=== PATIENT | female | born 1970 | race Native Hawaiian/Other Pacific Islander ===

== ENCOUNTER 2022-09-24 10:15 | Outpatient (REF) | payer OTHER, SELFPAY ==
--- NOTE | 2022-09-24 10:15 | CRLHL7_ITS ---
For Patients: As a result of the Century Cures Act, medical imaging exams and procedure reports are released immediately into your electronic medical record. You may view this report before your referring provider. If you have questions, please contact your health care provider. BILATERAL SCREENING MAMMOGRAM WITH COMPUTER-AIDED DETECTION AND TOMOSYNTHESIS TECHNIQUE: CC and MLO views were obtained. These mammographic images have been obtained using full-field digital technique. These mammographic images were interpreted with the benefit of computer-aided detection. Breast Tomosynthesis was used in this interpretation. COMPARISON FILM: 12/15/18, 09/26/16, 01/11/15. FINDINGS: There are scattered areas of fibroglandular density IMPRESSION: There is no radiographic evidence for malignancy. ASSESSMENT: BI-RADS Category 1: Negative RECOMMENDATION: Routine screening mammogram in 1 year. A lay language report of this examination will be provided to the patient. Zachary Perry M.D. Diagnostic Radiologist [email or web address] SHAKIRA/Dictated by: Zachary Perry MD @ 10/01/2022 11:30:00 AM (Electronically Signed)
== END 2022-09-24 10:16 | disposition home or self-care (01) ==
LOC: MAMMO 10:15
PROVIDERS: Visit Provider Nurse Practitioner Family
DX: Z12.31 Encounter for screening mammogram for malignant neoplasm of breast (principal)
CPT/HCPCS: 36415; 77063; 77067; 83036; T1013

== ENCOUNTER 2023-02-21 19:54 | Outpatient (CLI) | payer SELFPAY | END 2023-02-21 19:55 | disposition home or self-care (01) | PROVIDERS: Visit Provider Nurse Practitioner Family | DX: R10.9 Unspecified abdominal pain (principal) | CPT/HCPCS: 86140 ==

== ENCOUNTER 2025-03-10 15:07 | Outpatient (REF) | payer SELFPAY ==
--- OUTSIDE RECORDS SUMMARY | 2025-03-10 15:09 | XMS_ITS | Clinical Summary ---
Author Organization [employer] [facility] [employer] Address [address] [place] [id number] Care Team Providers Care Helicopter Mechanic Name Role Phone Unavailable Primary Care Provider Unavailabl e Allergies Active Allergy Reactions Criticality Noted Date Comments Droperidol 08/18/2007 Medications atenoloL (TENORMIN) 50 mg tabletIndications :Essential hypertension Take 1 tablet by mouth once daily. 30 tablet 5 0 Active levothyroxine (SYNTHROID) 50 mcg tabletIndications :Hypothyroidism, unspecified type TAKE 1 TABLET BY MOUTH BEFORE BREAKFAST 90 Tablet 1 Active losartan (COZAAR) 25 mg tabletIndications :Essential hypertension TAKE 1 TABLET BY MOUTH ONCE DAILY 30 Tablet 1 Active Active Problems Problem Noted Date Diagnosed Date UTI due to extended-spectrum beta lactamase (ESBL) producing Escherichia coli 09/04/2016 Elevated BP 08/31/2016 Solitary kidney 05/18/2015 Overview (05/18/2015): Right kidney is absent. Diverticulosis of large intestine 05/18/2015 Overview (12/23/2018): With Diverticulitis on CT scan in 10/2017 treated outpatient with Augmetin. She was told to have a colonoscopy. In 2012 she had her first bout of diverticulitis that was not confirmed by CT scan. Colonoscopy 12/2018 mild diverticulosis, repeat in 10 years Hypothyroidism 03/29/2014 Vitamin D deficiency 03/29/2014 Reflux esophagitis 06/14/2011 Other joint derangement, not elsewhere classified, ankle and foot 10/09/2007 Immunizations Immunization Administration Dates Next Due COVID-19 vaccine ([employer]-UrbfulNTExactFlat 30mcg/0.3mL) P F, MDV 01/06/2021,12/17/2020 Td (Age >=7 Years) 01/04/1996 Tdap 11/02/2008 Family History Medical History Relation Name Comments Diabetes Brother Diabetes Father also s/p renal transplant Diabetes Mother Hypertension Mother Relation Name Status Comments Brother Father Mother Social History Tobacco Use Types Packs/Day Years Used Date Smoking Tobacco: Never Smokeless Tobacco: Never Tobacco Cessation:Counseling Given: Yes Comments:never Alcohol Use Standard Drinks/Week Comments No 0 (1 standard drink = 0.6 oz pur e alcohol) PHQ-2 Answer Date Recorded PHQ-2 TOTAL SCORE 4 02/19/2020 Social Connections Answer Date Recorded Frequency of Communication with Friends and Fami ly Not on file 09/16/2021 Financial Resource Strain Answer Date R ecorded Difficulty of Paying Living Expenses Not on file 09/16/2021 Difficulty of Paying Living Expenses Not on file 09/16/2021 Comments No Sex and Gender Information Value Date Recorded Sex Assigned at Not on file Legal Sex Female 5:27 AM [employer] [facility] Gender Identity Not on file Sexual Orientation Not on file Occupation Industry Job Start Date Job End Date Not on file Not on file Not on file Not on file Obstetrics History Para Term AB IAB SAB Ectopic Multiple Livin g Live Births 3 1 1 2 Date Outcome GA Total Labor Labor/2nd/3rd Weight Sex Type Anes PTL Fide A1 A5 Name Clin SAB Last Filed Vital Signs Vital Sign Reading Time Taken Comments Blood Pressure 138/91 03/09/2021 7:56 AM CDT Pulse 84 03/09/2021 7:56 AM CDT Temperature 36.3 C (97.3 F) 03/09/2021 7:56 AM CDT Respiratory Rate 18 03/07/2007 10:20 AM CDT Oxygen Saturation 96% 03/09/2021 7:56 AM CDT Inhaled Oxygen Concentration - - Weight 63.8 kg (140 lb 9.6 oz) 03/09/2021 7:56 A M CDT Height 146 cm (4' 9.48) 03/06/2021 1:08 PM CDT Body Mass Index 29.92 03/06/2021 1:08 PM CDT Plan of Treatment Health Maintenance Due Date Last Done Comments HIV for age 15-65 1985 Hepatitis C screening for ag e 18-79 1988 Hepatitis B series for 19+ ( 1 of 3 - 19+ 3-dose series) 1989 Tetanus booster 11/02/2018 11/02/2008, 01/04/1996 Mammogram for age 45-75 12/16/2019 12/16/19 19, 09/26/2016, 01/11/2015, Additional history exists Pneumococcal series for age 50+ (1 of 1 - PCV) 2020 Zoster (shingles) series for age 50+ (1 of 2) 2020 Depression screening for age 12+ 02/18/2021 02/19/2020, 07/27/2016, 03/11/2009 BMI (ht and wt on same day) for age 18+ 03/06/2022 03/06/2021, 12/05/2018, 12/01/2018, Additional history exists Lipids for age 45-75 12/16/2023 12/15/2018, 09/21/2016, 04/03/2010 COVID-19 vaccine series ( season) 2024 01/06/2021, 12/17/2020 Influenza Vaccine (Season Ended) 2025 Pap test for age 21-65 06/28/2025 , 06/28/2022, 12/01/2018, Additional history exists Colonoscopy through age 75 12/23/202812/23, 12/23/2018, 12/23/2018, Additional history exists Tdap Completed 11/02/2008 Procedures Procedure Name Priority Date/Time Associated Diagnosis Comments BOOKER THIN PREP PAP DIAGNOSTIC IMAGED Routine 06/28/2022 9:30 AM CDT COLONOSCOPY DIAGNOSTIC Routine 12/23/2018 9:43 AM CDT Diverticulosis of large intestine without hemorrhage XR MAMMO BILAT SCREENING Routine 12/15/2018 9:08 AM CDT Visit for screening mammogram LIPID PANEL W REFLEX MEASURED LDL Routine 12/15/2018 8:34 AM CDT Essential hypertension from Last 3 Months or Most Recently Relevant to Health Maintenance Results * BOOKER THIN PREP PAP DIAGNOSTIC IMAGED (06/28/2022 9:30 AM CDT) Case Report Gynecologic Cytology Report Case: [id number] Authorizing Provider: Unknown, Doctor Collected: 06/28/2022 0999 Ordering Location: [facility] Received: 07/11/[address] [place] [address] First Screen: Mir Kim Rescreen: Marbella Lantigua Specimen: BOOKER ThinPrep Vial Diagnostic, Cervical/Vaginal 07/27/2022 9:21 AM [facility]NAGER [facility] [email or web address] LABORAT[facility]-C ENTRAL LABORATORY INTERPRETATION/ RESULT NEGATIVE FOR INTRAEPITHELIAL LESION OR MALIGNANCY (NIL) (none) 07/27/2022 9:21 AM [facility]NAGER [facility] ENTRAL LABORATORY at 0921 [facility] SPECIMEN ADEQUACY Satisfactory for evaluation Endocervical component present 07/27/2022 9:21 AM MANAGER [facility] ENTRPA LABORATORY HPV REQUEST HPV and PAP 07/27/2022 9:[address] [facility] ENTRAL LABORATORY Last Pap Result First Pap/Unknown 9:[address] [facility] ENTRAL LABORATORY [place] Bx Done Today No 07/27/2022 9:21 AM MANAGER [facility] ENTRAL LABORATORY Additional Information 07/27/2022 9:21 AM MANAGER [facility] ENTRAL LABORATORY Comment: Interpreted at [facility], Central Laboratory - [address], [place] [address] Automated Review Successful 07/27/2022 9:21 AM MANAGER [facility] ENTRAL LABORATORY Comment:Specimen processed s uccessfully by automated communication assistant device, ThinPrep Imaging System, [employer] ANCILLARY TESTING BOOKER HPV Ordered, Please see separate report 07/27/2022 9:21 AM [facility]NAGER [facility] ENTRPA LABORATORY Note The pap test is a screening technique, not a diagnostic procedure. It is used primarily to screen for squamous cancers and precursor lesions. Published studies have shown that it is subject to both false negative and false positive results. The pap test should not be used as the sole means to diagnose or exclude pre-malignant and malignant lesions. 07/27/2022 9:21 AM MANAGER [facility] LABORAT[facility]-C ENTRAL LABORATORY Other (Cervical/Vagina l) 06/28/2022 9:30 AM CDT 07/11/2022 10:17 AM CDT Doctor Unknown PATHOLOGY/CYTOLOGY Final Result [facility] [address] [place] [address], [place] * COLONOSCOPY DIAGNOSTIC (12/23/2018 9:43 AM CDT) Toy Peoples MD GI PROCEDURE ORD Final Res ult * XR MAMMO BILAT SCREENING (12/15/2018 9:08 AM CDT) Anatomical Region Laterality Modality BREASTS, Breast Left, Breast Right Bilateral Mammography Impressions 12/15/2018 12:20 PM CDT There is no radiographic evidence for malignancy. Recommend annual mammograms. A lay language report of this examination will be provided to the patient. MAMMOGRAM ASSESSMENT: ACR 1 Negative Narrative 12/15/2018 12:20 PM CDT XR MAMMO BILAT SCREENING [[id number]] CLINICAL HISTORY: This is an asymptomatic 48 y.o. patient. INDICATION FOR EXAM: Mammogram Screening. TECHNIQUE: CC & MLO views were obtained. This digital study was evaluated with the assistance of Computer-Aided Detection. COMPARISON FILM: Yes 09/26/16 [facility] 01/11/15 [facility] FINDINGS: Mammographically, the breast tissue is almost entirely fat. There are no dominant masses, suspicious micro calcifications or areas of architectural distortion. Toy Peoples MD MAMMO Final Resu lt * LIPID PANEL W REFLEX MEASURED LDL (12/15/2018 8:34 AM CDT) CHOLESTEROL,TOTAL 163 100 - 199 mg/dL 12/15/2018 2:33 PM CDT [facility] TRAL LABORATORY TRIGLYCERIDES 80 <150 mg/dL 12/15/2018 2:33 PM CDT [facility] TRAL LABORATORY HDL CHOLESTEROL 48 >40 mg/dL 9 2:33 PM CDT [facility] TRAL LABORATORY NON-HDL CHOLESTEROL 115 <145 mg/dl 12/15/2018 2:33 PM CDT [facility] TRAL LABORATORY CHOL/HDL RATIO 3.40 <4.50 12/15/2018 2:33 PM CDT [facility] TRAL LABORAT[facility] LDL CHOLESTEROL 99 <=130 mg/dL 12/15/2018 2:33 PM CDT [facility] TRAL LABORATORY PROVIDER ORDERED STATUS RANDOM 12/15/2018 2:33 PM CDT [facility] TRAL LABORATORY Blood BLOOD SPECIMEN / Unknown Venipuncture / Unknown 12/15/2018 8:34 AM CDT 12/15/2018 8:36 AM CDT us Toy Peoples MD CHEMISTRY Final Resu [facility] [address] [place] [address], [place] from Last 3 Months or Most Recently Relevant to Health Maintenance
--- OUTSIDE RECORDS SUMMARY | 2025-03-10 15:10 | XMS_ITS | Data Portability ---
Author Organization [employer] [employer] [facility] OFFICE Address [address] [place] [address] [place] [address] Assessment Encounter Date Assessment Date Assessment LastModified by Organization Details LastModified Time 12/16/2024 12/16/2024 - refilled home medications - annual labs - mammogram - pap due 2026 [email or web address] Not available 12/16/2024 13:05:02 Plan of Treatment Reminders Order Date Submit Date Provider Last Modified By Organization Details Last Modified Time Details Appointments None recorded . Lab HbA1c (hemoglo bin A1c), blood 2024 025 [facility], [address] [place], [address], 5 12:38:17 lipid panel, serum 2024 025 [facility], [address] [place], [address], 5 10:52:55 CMP, serum or plasma 2024 025 [facility], [address] [place], [address], 5 10:52:55 CBC w/ auto diff 2024 025 [facility], [address] [place], [address], 5 10:54:26 TSH, serum or plasma 2024 025 [facility], [address] [place], [address], 5 10:52:55 fecal occult blood, immunoas say, stool 2023 024 [facility], [address] [place], [address], 4 08:58:39 pap, LB + HR HPV - menopaus al; previous pap 2019 WNL 2021 022 [facility], [address] [place], [address], 2 13:34:05 Referral communit y health worker referral 2023 024 [email or web address] Not available 4 16:03:36 Procedures None recorded . Surgeries None recorded . Imaging MAMMO, screenin g, bilatera l 2024 025 [facility], [address] [place], [address], 5 15:28:32 MAMMO, screenin g, digital, bilatera l 2021 022 TARA Not available 3 10:48:49 Medication Orders losartan 50 mg tablet 2024 025 [facility], [address] [place], [address], 5 14:02:35 famotidi ne 20 mg tablet 2024 025 [facility], [address] [place] [address], [address], 5 14:02:00 amlodipi ne 5 mg tablet 2024 025 [facility], [address] [place], [address], 5 14:02:17 Senna with Docusate Sodium 8.6 mg-50 mg tablet [address], [address], 5 12:12:33 levothyr oxine 50 mcg tablet [address], [address], 5 16:34:21 Senna with Docusate Sodium 8.6 mg-50 mg tablet [address], [address], 4 16:16:51 amlodipi ne 5 mg tablet [address], [address], 4 16:16:26 calcium 600 mg (as carbonat e)-vitam in D3 10 mcg (400 unit) tablet [address], [address], 4 16:15:58 famotidi ne 20 mg tablet [address], [address], 4 16:20:37 levothyr oxine 50 mcg tablet [address], [address], 4 18:24:45 Patient TargetsNo targets recorded. Patient Instructions Encounter Date Encounter Id Patient Instructions Last Modified By Organization Details Last Modified Time 06/28/2022 [id number] mammogram: about this test [email or web address] Not available 06/28/2022 11:06:49 Reason for Referral Community Health Worker Refe rral for Prediabetes Referring Physician: Marli Rain, Family Medicine, Encounter Date: 02/19/2024 Results Created Date Observation Date Name Description Value Unit Range Abnormal Flag Note LastModifiedBy Organization Detail LastModifiedTime 12/31/1912/30/2024 TSH, serum or plasm a A1C 5.9 high Not Available [facility] [address] [place], [address], 12/30/2024 10:52:55 12/31/19 25 12/30/2024 TSH, serum or plasm a white blood count 7.44 Not Available [facility] [address] [place], [address], 12/30/2024 10:52:55 12/31/19 25 12/30/2024 TSH, serum or plasm a hemoglobin 14.2 Not Available [facility] [address] [place], [address], 12/30/2024 10:52:55 12/31/19 25 12/30/2024 TSH, serum or plasm a plt 326 Not Available [facility] [address] [place], [address], 12/30/2024 10:52:55 12/31/19 25 12/30/2024 TSH, serum or plasm a creatinine 0.6 Not Available [facility] [address] [place], [address], 12/30/2024 10:52:55 12/31/19 25 12/30/2024 TSH, serum or plasm a ALT 27 Not Available [facility] [address] [place], [address], 12/30/2024 10:52:55 12/31/19 25 12/30/2024 TSH, serum or plasm a total cholesterol 183 Not Available [facility] [address] [place], [address], 12/30/2024 10:52:55 12/31/1912/30/2024 TSH, serum or plasm a triglyceride s 83 Not Available [facility] [address] [place], [address], 12/30/2024 10:52:55 12/31/19 25 12/30/2024 TSH, serum or plasm a HDL 66 Not Available [facility] [address] [place], [address], 12/30/2024 10:52:55 12/31/1912/30/2024 TSH, serum or plasm a LDL 100 Not Available [facility] [address] [place], [address], 12/30/2024 10:52:55 12/31/19 25 12/30/2024 TSH, serum or plasm a TSH 1.870 Not Available [facility] [address] [place], [address], 12/30/2024 10:52:55 12/31/19 25 12/30/2024 lipid panel , serum A1C 5.9 high Not Available [facility] [address] [place], [address], 12/30/2024 10:52:55 12/31/19 25 12/30/2024 lipid panel , serum white blood count 7.44 Not Available [facility] [address] [place], [address], 12/30/2024 10:52:55 12/31/19 25 12/30/2024 lipid panel , serum hemoglobin 14.2 Not Available [facility] [address] [place], [address], 12/30/2024 10:52:55 12/31/19 25 12/30/2024 lipid panel , serum plt 326 Not Available [facility] [address] [place], [address], 12/30/2024 10:52:55 12/31/19 25 12/30/2024 lipid panel , serum creatinine 0.6 Not Available [facility] [address] [place], [address], 12/30/2024 10:52:55 12/31/19 25 12/30/2024 lipid panel , serum ALT 27 Not Available [facility] [address] [place], [address], 12/30/2024 10:52:55 12/31/19 25 12/30/2024 lipid panel , serum total cholesterol 183 Not Available [facility] [address] [place], [address], 12/30/2024 10:52:55 12/31/19 25 12/30/2024 lipid panel , serum triglyceride s 83 Not Available [facility] [address] [place], [address], 12/30/2024 10:52:55 12/31/19 25 12/30/2024 lipid panel , serum HDL 66 Not Available [facility] [address] [place], [address], 12/30/2024 10:52:55 12/31/19 25 12/30/2024 lipid panel , serum LDL 100 Not Available [facility] [address] [place], [address], 12/30/2024 10:52:55 12/31/19 25 12/30/2024 lipid panel , serum TSH 1.870 Not Available [facility] [address] [place], [address], 12/30/2024 10:52:55 12/31/19 25 12/30/2024 CMP, serum or plasm a A1C 5.9 high Not Available [facility] [address] [place], [address], 12/30/2024 10:52:55 12/31/19 25 12/30/2024 CMP, serum or plasm a white blood count 7.44 Not Available [facility] [address] [place], [address], 12/30/2024 10:52:55 12/31/19 25 12/30/2024 CMP, serum or plasm a hemoglobin 14.2 Not Available [facility] [address] [place], [address], 12/30/2024 10:52:55 12/31/19 25 12/30/2024 CMP, serum or plasm a plt 326 Not Available [facility] [address] [place], [address], 12/30/2024 10:52:55 12/31/19 25 12/30/2024 CMP, serum or plasm a creatinine 0.6 Not Available [facility] [address] [place], [address], 12/30/2024 10:52:55 12/31/19 25 12/30/2024 CMP, serum or plasm a ALT 27 Not Available [facility] [address] [place], [address], 12/30/2024 10:52:55 12/31/19 25 12/30/2024 CMP, serum or plasm a total cholesterol 183 Not Available [facility] [address] [place], [address], 12/30/2024 10:52:55 12/31/19 25 12/30/2024 CMP, serum or plasm a triglyceride s 83 Not Available [facility] [address] [place], [address], 12/30/2024 10:52:55 12/31/19 25 12/30/2024 CMP, serum or plasm a HDL 66 Not Available [facility] [address] [place], [address], 12/30/2024 10:52:55 12/31/19 25 12/30/2024 CMP, serum or plasm a LDL 100 Not Available [facility] [address] [place], [address], 12/30/2024 10:52:55 12/31/19 25 12/30/2024 CMP, serum or plasm a TSH 1.870 Not Available [facility] [address] [place], [address], 12/30/2024 10:52:55 05/29/20 22 05/29/2022 CBC w/ diff creatinine 0.85 Not Available [facility] [address] [place] [address], [address], 05/30/2022 13:39:56 05/29/20 22 05/29/2022 CBC w/ diff TSH value 1.45 Not Available [facility] [address] [place] [address], [address], 05/30/2022 13:39:56 05/29/20 22 05/29/2022 CBC w/ diff whiteblood count 8.3 Not Available [facility] [address] [place] [address], [address], 05/30/2022 13:39:56 05/29/20 22 05/29/2022 CBC w/ diff hemoglobin 14.1 Not Available [facility] [address] [place] [address], [address], 05/30/2022 13:39:56 05/29/2005/29/2022 CBC w/ diff platelet count 305 Not Available [facility] [address] [place] [address], [address], 05/30/2022 13:39:56 05/29/20 22 05/29/2022 TSH + free T4, serum creatinine 0.85 Not Available [facility] [address] [place] [address], [address], 05/30/2022 13:39:56 05/29/2005/29/2022 TSH + free T4, serum TSH value 1.45 Not Available [facility] [address] [place] [address], [address], 05/30/2022 13:39:56 05/29/2005/29/2022 TSH + free T4, serum whiteblood count 8.3 Not Available [facility] [address] [place] [address], [address], 05/30/2022 13:39:56 05/29/2005/29/2022 TSH + free T4, serum hemoglobin 14.1 Not Available [facility] [address] [place] [address], [address], 05/30/2022 13:39:56 05/29/2005/29/2022 TSH + free T4, serum platelet count 305 Not Available [facility] [address] [place] [address], [address], 05/30/2022 13:39:56 05/29/2005/29/2022 BMP, serum or plasm a creatinine 0.85 Not Available [facility] [place], [address], 05/30/2022 12:16:31 05/29/2005/29/2022 BMP, serum or plasm a TSH value 1.45 Not Available [facility] [address] [place] [address], [address], 05/30/2022 12:16:31 05/29/2005/29/2022 BMP, serum or plasm a whiteblood count 8.3 Not Available [facility] [address] [place] [address], [address], 05/30/2022 12:16:31 05/29/2005/29/2022 BMP, serum or plasm a hemoglobin 14.1 Not Available [facility] [address] [place], [address], 05/30/2022 12:16:31 05/29/20 22 05/29/2022 BMP, serum or plasm a platelet count 305 Not Available [facility] [address] [place], [address], 05/30/2022 12:16:31 09/24/19 23 09/24/2022 HbA1c (hemo globi n A1c), blood A1C hemoglobin 5.70 Not Available [facility] [address] [place], [address], 09/24/2022 14:24:25 03/22/20 23 03/22/2023 TSH + free T4, serum TSH 2.270 Not Available [facility] [address] [place] [address], [address], 03/26/2023 10:25:45 08/04/20 24 08/04/2024 fecal occul t blood , immun oassa y, stool fecal occal bld negati ve negati ve Not Available [facility] [address] [place] [address], [address], 08/04/2024 21:09:19 12/30/19 25 12/29/2024 CBC w/ auto diff A1C 5.9 high Not Available [facility] [address] [place], [address], 12/29/2024 12:38:17 12/30/19 25 12/29/2024 CBC w/ auto diff white blood count 7.44 Not Available [facility] [address] [place], [address], 12/29/2024 12:38:17 12/30/19 25 12/29/2024 CBC w/ auto diff hemoglobin 14.2 Not Available [facility] [address] [place], [address], 12/29/2024 12:38:17 12/30/19 25 12/29/2024 CBC w/ auto diff plt 326 Not Available [facility] [address] [place], [address], 12/29/2024 12:38:17 12/30/19 25 12/29/2024 CBC w/ auto diff creatinine 0.6 Not Available [facility] [address] [place], [address], 12/29/2024 12:38:17 12/30/19 25 12/29/2024 CBC w/ auto diff ALT 27 Not Available [facility] [address] [place], [address], 12/29/2024 12:38:17 12/30/19 25 12/29/2024 CBC w/ auto diff total cholesterol 183 Not Available [facility] [address] [place], [address], 12/29/2024 12:38:17 12/30/19 25 12/29/2024 CBC w/ auto diff triglyceride s 83 Not Available [facility] [address] [place], [address], 12/29/2024 12:38:17 12/30/19 25 12/29/2024 CBC w/ auto diff HDL 66 Not Available [facility] [address] [place], [address], 12/29/2024 12:38:17 12/30/19 25 12/29/2024 CBC w/ auto diff LDL 100 Not Available [facility] [address] [place], [address], 12/29/2024 12:38:17 12/30/19 25 12/29/2024 CBC w/ auto diff TSH 1.870 Not Available [facility] [address] [place], [address], 12/29/2024 12:38:17 12/30/19 25 12/29/2024 HbA1c (hemo globi n A1c), blood A1C 5.9 high Not Available [facility] [address] [place], [address], 12/29/2024 11:26:31 12/30/19 25 12/29/2024 HbA1c (hemo globi n A1c), blood white blood count 7.44 Not Available [facility] [address] [place], [address], 12/29/2024 11:26:31 12/30/19 25 12/29/2024 HbA1c (hemo globi n A1c), blood hemoglobin 14.2 Not Available [facility] [address] [place], [address], 12/29/2024 11:26:31 12/30/19 25 12/29/2024 HbA1c (hemo globi n A1c), blood plt 326 Not Available [facility] [address] [place], [address], 12/29/2024 11:26:31 12/30/19 25 12/29/2024 HbA1c (hemo globi n A1c), blood creatinine 0.6 Not Available [facility] [address] [place], [address], 12/29/2024 11:26:31 12/30/19 25 12/29/2024 HbA1c (hemo globi n A1c), blood ALT 27 Not Available [facility] [address] [place], [address], 12/29/2024 11:26:31 12/30/19 25 12/29/2024 HbA1c (hemo globi n A1c), blood total cholesterol 183 Not Available [facility] [address] [place], [address], 12/29/2024 11:26:31 12/30/19 25 12/29/2024 HbA1c (hemo globi n A1c), blood triglyceride s 83 Not Available [facility] [address] [place], [address], 12/29/2024 11:26:31 12/30/19 25 12/29/2024 HbA1c (hemo globi n A1c), blood HDL 66 Not Available [facility] [address] [place], [address], 12/29/2024 11:26:31 12/30/19 25 12/29/2024 HbA1c (hemo globi n A1c), blood LDL 100 Not Available [facility] [address] [place], [address], 12/29/2024 11:26:31 12/30/19 25 12/29/2024 HbA1c (hemo globi n A1c), blood TSH 1.870 Not Available [facility] [address] [place], [address], 12/29/2024 11:26:31 10/02/19 23 09/24/2022 MAMMO , scree ashwini, digit al, bilat eral No observ ation record ed. [email or web address] Not Available 2022 12:27:03 02/28/20 23 02/21/2023 XR, abdom en No observ ation record ed. [email or web address] Not Available 2022 13:47:32 Result Notes None recorded. Problems Name Problem SNOMED Code Status Onset Date Resolution Date Notes Provider Name and Address Organization Details Recorded Time Compensat ory hypertrop hy of single kidney 950551785 Active 2020 R kidney absent MARLI RAIN, ANP-BC [address] [place], [address], [facility] Rain 12:18:59 Diverticu litis 859519010 Active 02/2021 Sade Lao, SHOE SALESMAN [address] [place], [address], [place] [facility] 1 09:46:14 Hypothyro idism 05679749 Active [address], [address], [facility] 3 12:18:51 Cholecyst itis 96183154 Active 2020 Cholecyste ctomy 2002 Sade Lao NP [address] [place] [address], [address], [facility] 1 09:48:27 Essential hypertens ion 89448723 Active [address], [address], [facility] 3 12:18:56 Vitamin D deficienc y 92068208 Active 2020 Sade Lao NP [address] [place] [address], [address], [facility] 1 09:40:20 Prediabet es 681265903 Active [address], [address], [facility] 4 16:31:33 Occult blood detected in feces 98414061 Active [address], [address], [facility] 4 16:36:34 Gastroeso phageal reflux disease 693633098 Active [address], [address], [facility] 4 16:49:45 Constipat ion 80546294 Active 2024 Yesenia Turpin MD [address] [place] [address], [address], [facility] 5 11:42:06 Problem Notes None recorded. Procedures Surgical History Date Name Laterality Status Provider Name and Address Organization Details Recorded Time 12/24/19 19 Colonoscopy completed Sade Lao NP [address] [facility] [place], [address], [facility] 06/07/2021 09:44:38 12/24/19 19 colonoscopy completed Sade aLo NP [address] [facility] [place], [address], [facility] 06/07/2021 09:43:29 12/16/19 19 Most Recent Mammogram completed Sade Lao NP [address] [facility] [place], [address], [facility] 06/07/2021 09:44:29 12/02/19 19 Date of Last Pap Smear completed Sade Lao NP [address] [place], [address], [facility] 06/07/2021 09:41:04 09/16/19 03 Cholecystectomy completed Sade Lao NP [address] [place], [address], [facility] [employer] 06/07/2021 09:48:39 09/16/19 03 ligation of bilateral fallopian tubes completed Sade Lao NP [address] [place], [address], [facility] 06/07/2021 09:48:57 Imaging Results None recorded. Procedure Notes None recorded. Medical Equipment None Reported. Allergies Allergen ID Allergen Name Allergen Category Reaction Reaction Severity Criticality Documentation Date Start Date Code Code System Note Provider Name and Address Organization Details Recorded Time 763 droperido l medicatio n wheezing Not available Not available 06/07/2021 3648 RxNorm Sade Lao NP [address] [place], [address], [facility] 10:50:11 Medications Name Sig Start Date Stop Date Status Note LastModified by Organization Details LastModified Time calcium + vitamin d3 600-10 TAKE ONE TABLET BY MOUTH TWICE A DAY. active Not Available Not Available No t Available losartan 50 mg tablet TAKE 1 TABLET BY MOUTH EVERY DAY FOR HIGH BLOOD PRESSURE. active Not Available Not Available No t Available lisinopril 20 mg tablet take 1 tablet by oral route every day in the morning 09/11 completed Not Available Not Available Not Available metronidazo le 500 mg tablet TAKE 1 TABLET (500 MG) BY MOUTH 3 TIMES DAILY FOR 10 DAYS. 06/07 completed Not Available Not Available Not Available amlodipine 5 mg tablet TAKE 1 TABLET BY MOUTH EVERY DAY active Not Available Not Available No t Available ciprofloxac in 500 mg tablet TAKE 1 TABLET (500 MG) BY MOUTH 2 TIMES DAILY FOR 10 DAYS. 06/07 completed Not Available Not Available Not Available FiberCon 625 mg tablet Take 1 tablet by oral route. 02/18 completed Not Available Not Available Not Available famotidine 20 mg tablet TAKE 1 TABLET BY MOUTH TWICE A DAY active Not Available Not Available No t Available levothyroxi ne 50 mcg tablet take 1 tablet by oral route every day 2024 active Not Available Not Available Not Avai lable losartan 25 mg tablet TAKE 1 1/2 TABLET BY MOUTH ONCE DAILY TO CONTROL BLOOD PRESSURE 01/10 completed Not Available Not Available Not Available gabapentin 100 mg capsule TAKE 1 CAPSULE BY MOUTH 3 TIMES A DAY NEEDED. 02/18 completed Not Available Not Available Not Available ergocalcife rol (vitamin D2) 1,250 mcg (50,000 unit) capsule Take 1 capsule every week by oral route. 06/28 completed Not Available Not Available Not Available atenolol 50 mg tablet 06/07 completed Not Available Not Available Not Available nitrofurant oin monohydrate /macrocryst als 100 mg capsule TAKE 1 CAPSULE BY MOUTH EVERY 12 HOURS FOR 5 DAYS FOR UTI SYMPTOMS. 12/16 completed Not Available Not Available Not Available calcium 600 mg (as carbonate)- vitamin D3 10 mcg (400 unit) tablet Take 1 tablet twice a day by oral route. 2023 active Not Available Not Available Not Avai lable Senna with Docusate Sodium 8.6 mg-50 mg tablet Take 2 tablets as needed by oral route with meal(s). 2024 active Not Available Not Available Not Avai lable Vitals Date Recorded Body height Body mass index (BMI) Body weight Heart rate Heart rate Systolic blood pressure Diastolic blood pressure Provider Name and Address Organization Details Last Updated DateTime 5 142.24 cm 32 kg/m2 21352.9 9 g 87 /min 87 /min 133 mm[Hg] 84 mm[Hg] Yesenia Turpin MD [address] [place], [address], [facility] [employer] 5 12:56:10 Date Recorded Body weight Heart rate Body temperature Oxygen saturation Oxygen saturation in Arterial blood by Pulse oximetry Body mass index (BMI) Body height Systolic blood pressure Diastolic blood pressure Provider Name and Address Organization Details Last Updated DateTime 4 03818.3 9 g 91 /min 97.2 [degF] 96 % 96 % 33.2 kg/m2 142.24 cm 152 mm[Hg] 90 mm[Hg] Edda Culp [facility] [employer] 4 16:14:12 Date Recorded Oxygen saturation Oxygen saturation in Arterial blood by Pulse oximetry Respiratory rate Body weight Systolic blood pressure Diastolic blood pressure Provider Name and Address Organization Details Last Updated DateTime 2 97 % 97 % 12 /min 466126. 53 g 128 mm[Hg] 80 mm[Hg] TIM BOLTON [address] [place], [address], [facility] [employer] 2 14:22:24 Date Recorded Body height Body mass index (BMI) Body weight Heart rate Oxygen saturation Oxygen saturation in Arterial blood by Pulse oximetry Systolic blood pressure Diastolic blood pressure Provider Name and Address Organization Details Last Updated DateTime 2 144.5 cm 31.2 kg/m2 58583.2 2 g 81 /min 98 % 98 % 140 mm[Hg] 90 mm[Hg] LISET Disla [address] [place], [address], [facility] [employer] 2 11:05:11 Social History Question Answer Notes LastModified by Organizat ion Details LastModified Time Tobacco Smoking Status Never Smoker Sade Lao NP [address] [place], [address], [facility] 06/07/2021 10:56:44 What Type Of Diet Are You Following? REGULAR Information not available 06/07/2021 What Is Your Relationship Status? Information not available 06/07/2021 Sex: Unknown Functional Status Question Answer Note LastModified by Organizat ion Details LastModified Time What is your level of alcohol consumption? None Information not available 06/07/2021 What is your exercise level? Occasional Information not available 06/07/2021 Mental Status None recorded. Family History Relationship Description Onset Age of this Age Resolved Age Notes LastModified by Organization Details LastModified Time Mother Diabetes mellitus 45 Not available 2020 09:49:34 Mother Hypertensive disorder Not available 2020 09:50:04 Father Diabetes mellitus 58 Not available 2020 09:49:34 Brother Diabetes mellitus Not available 2020 09:49:47 Medical History No medical history recorded. Gynecological History Statement/Question Response Date of Last Pap Smear 12/01/2018 Current Control Method Menopause Most Recent Mammogram 12/15/2018 Colonoscopy 12/23/2018 Obstetrics History GPAL:G 3 P 2 0 1 2 Type Value Full Term 2 Spontaneous 1 Living 2 Total 3 Past Encounters Encounter ID Performer Location Encounter Start Date Encounter Closed Date Diagnosis/Indication Diagnosis SNOMED-CT Code Diagnosis ICD10 Code Diagnosis Note Sade Lao NP [facility] [address] [place] [address] 06/07/2021 10:40:43 06/07/2021 11:44:08 Essential hypertension 48709929 I10 Refill Losartan. Patient will check home BP measuremen ts and call us with readings. Will adjust based on that and lab results. Congratula adalid patient on motivation to exercise. Hypothyroidism 00944840 E03.9 Check TSH/Free T4. Follow up pending results. Family his tory of diabetes mellitus type 2 248153335 Z83.3 Screening labs. Also encouraged patient to schedule for [facility] breast exam/mammo gram referral. [id number] [facility] [address] [place] [address] 11/14/2021 16:57:42 11/14/2021 17:55:00 Pain in right foot [id number] 34731 M79.671 Hypothyroidism 33825877 E03.9 TSH wnl. Cont levothryox in 50mcg daily. Hypertensive disorder 38 349419 I10 Increase losartan to 50mg daily. Cont bp logs. HOme readings 131-147/77 -84; in-clinic reading today 149/84Disc ussed role of exercise, low sodium, weight loss in role of bp mgmt. IF successful , may be able to reduce dose. Urgent olena serge to urinate 98778364 R39.15 Check UA/UC. IF normal, investigat e other causes. [address] [facility] [address] [place] [address] 01/23/2022 15:43:49 01/23/2022 16:52:58 Neuropathy 078425652 G62.9 Will investigat e cause since no hx of DM. Start gabapentin for pain control. Discussed titration/ as needed based on patient preference . Adult heal th examination 909823337 Z00.00 Needs TSH and MABLE visit in the fall Urgent olena serge to urinate 87066333 R39.15 UA/UC (-) . IF Provided Luxembourgish informatio n sheet on pelvic floor exercises. If ineffectiv e, will consider addition of oxybutynin . [address] [facility] [address] [place] [address] 03/08/2022 10:02:10 03/08/2022 10:42:44 Vitamin D deficiency 96273869 E55.9 Replacemen t. Essential hypertension 16763991 I10 Cont losartan. Discussed role of low sodium and exercise. Hypothyroidism 19904336 E03.9 TSH wnl. Cont levothryox in 50mcg daily. Recheck 3 months. Urgent olena serge to urinate 15494382 R39.15 UA/UC (-) previously . Has been practicing Kegel's with slow improvemen t. She will cont and let me know in 3 months how she is doing. [address] PRETTY BOLTON-VIVIANA [facility] OFFICE [address] [place] [address] 06/14/2022 10:04:32 06/18/2022 15:14:28 Upper respiratory infection 77289434 J06.9 MABLE visit will be reschedule d.No indication for antibiotic s at this time, but discussed how sometimes viral infections can progress to bacterial and s/sx to watch for. Report to UC or call if develop.Ga rgle with salt water, cont OTC treatmentA dvise annual Flu/covid booster 81297 LISET Disla [facility] OFF[facility] [address] [place] [address] 06/28/2022 10:06:10 06/28/2022 12:01:17 Screening for malignant neoplasm of cervix 982090646 Z12.4 F[place] out [place] paperwork. Pap test and hpv pending; if both negative, next screening in 5 yearsRevie wed with pt; will f/u with lab results accordingl yPt verbalized understand ing and agreed c plan Screening for malignant neoplasm of breast 511768298 Z12.39 Normal CBEFilled out MABLE paperworkR eferral for mammogram Lesion of vulva 56172860 6 N90.89 Unclear etiologyCu rrently asymptomat icadvised watchful waiting for now -- RTC if growing in size or pt becomes symptomati cPt verbalized understand ing and agreed c plan Essential hypertension 51793558 I10 BP elevated today; on second check was 130/90Pt has been off meds x 3 days; 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 Resolved on recheck. No further action to take on UC. No further sx. 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 No infectious sx.CBC, CMP nml. 62375 MARLI RAIN, ANP-BC [facility] OFF[facility] [address] [place] [address] 02/19/2024 16:04:40 02/19/2024 21:06:13 Gastroesophageal reflux disease 665709711 K21.00 Omit caffeine, carbonatio nNo large mealsNo lying flat for 3 hours after eatingAvoi d/reduce spicey foods such as picante, OJFamotidi ne prn if above strategies don't work Hypothyroidism 92714789 E03.9 WNL; will renew Essential hypertension 24605866 I10 Cont losartan. Given solitary kidney, will not increase ARB further (and pt uncomforta ble); will add amlodipine instead 5mg daily Menopause 534261894 Z78. 0 Will order supp to help prevent bone loss Prediabetes 517735920 R7 3.03 Hypertensive disorder 38 468699 I10 Occult blo od detected in feces 62502908 R19.5 Repeat stool testing; if still positive, advise colonoscop y NO known hemorrhoid s and no longer menstruati ng Constipation 88621310 K5 9.00 Pain of le ft ankle joint [id number] 4534858 M25.572 Resolving. Reviewed exercises for strengthen ing ankle 27795 Yesenia Turpin MD [facility] OFF[facility] [address] [place] [address] 12/16/2024 11:28:42 12/16/2024 12:03:35 Gastroesophageal reflux disease 847830898 K21.00 Essential hypertension 49965514 I10 Hypothyroidism 99477924 E03.9 Prediabetes 843889008 R7 3.03 Hypertensive disorder 38 640127 I10 Constipation 71204021 K5 9.00 Screening mammography of bilateral breasts 5386039246 37018 Z12.31 Health Concerns Section Related Observation LastModified by Organization Detai ls LastModified Time None Recorded Concern Status LastModified by Organization Details LastModified Time None Recorded Advance Directives Directive None Recorded Payers Insurance Date Sequence Insurance Name Policy Number Policy Corbin Covered Member ID Corbin Member ID Guarantor Name 10/11/2020 SLIDING FEE SCHEDULE - DISCOUNT Becca George 12/16/2024 MABLE SCREENING PROGRAM - [place] [employer] Becca George [facility] [address] [facility] [address] Beccayelena George Notes Date Note Type Note Provider Name and Address Organization Details Recorded Time 06/14/2022 text/html Pt originally scheduled for MABLE, but has upper respiratory illness. Has tested (-) for COVID twice. Sx started 5d ago with fever and chills. Fever continued until 3 days ago; no fever since, but still feels lowsy. Sx are staying the same. No productive sputum, pain with deep breath, sore throat, or ear pain. 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 Last pap was done in 2019 and was normal. Last mammogram was done in 2019 as well and was also normal. Pt denies any history of abnormal paps or mammograms. Denies vaginal sxs currently though feels a small nodule on the left labia that has been present for some time that she would like evaluated. Denies any pain or discomfort, but thinks it may be increasing in size slightly. Endorses significant vaginal dryness-- has tried some topical gel which she says she was given at previous visit (I could not find any mention of this during my brief perusual of previous OV notes. Nothing rx'd). Not using consistnetly, still has some at home. Denies breast sxs today. No hx of breast CA in family. Pt has HTN and notes she has been out of meds x 3 days so bp is running high. Prescription is waiting for her at the pharmacy. On levothyroxine for hypothyroidism; recent labs done Last lipid screening 1 year ago -- mildly elevated triglycerides at the time Reviewed and updated med list. She still takes the gabapentin as needed for neuropathy/leg pain but is not taking it every day. Check of A1C in 05/2021 was 5.6 suggesting prediabetes. Doing relatively well. Tries to eat healthy -- eating more veggies, has tried to reduce bread and tortillas; trying to drink more water. Does not drink soda regularly. No regular ETOH use. Pt does some [employer] on occasion for exercise. Works in a restaurant doing food prep. Colonscopy done 2018; not due until 2028. LISET Disla [address] [facility] [place], [address], [facility] [employer] 06/28/2022 23:16:05 03/26/2023 text/html Author called pt to discuss UA/UC results. No concerns today other than occasional constipation well managed with fiber supp and prn miralax. Vulvar lesion is unchanged. TIM BOLTON [address] [facility] [place], [address], [facility] [employer] 03/26/2023 12:01:27 02/19/2024 text/html Pt presents with throat phlegm. Had cough in August. It went away, but then returned in September and lasted until a month ago. No watery eyes, rhinorrhea, or known seasonal allergies. + acid taste in mouth, +esophogeal irritation, +occasional cough; +phlegm in throat. Also notes left ankle pain after twisting it about a month ago. Does feel it is getting better. +FOBT. NO known hemorroids. Not currently menstruating. Had labs done last month. TIM BOLTON [address] [place], [address], [facility] [employer] 02/26/2024 12:19:14 12/16/2024 text/html Becca is in for annual exam.Due for breast exam, mammogram, labs.Negative HPV on pap in 2021, next pap in 2026. Would like refills of her Losartan, Amlodipine, Levothyroxine, Senna, and Famotidine.Comorbid ities seem stable, occasionally has GERD flares.No chest pain, skin concerns. Yeseina Turpin MD [address] [place], [address], [facility] [employer] 12/16/2024 13:05:19 OBGyn Episode No OBEpisode recorded.
--- NOTE | 2025-03-10 15:20 | MM_ITS ---
Patient: KEENA HASTINGS Facility:?[facility] Patient ID:?[id number] Site Patient ID:?[id number]. Site :?1970 Study:?XRay-Breast 3D Angel SCREENING-03/10/2025 3:30:58 PM Ordering Physician:?Dyana Patterson Final Report: INDICATION: BILATERAL SCREENING MAMMOGRAM, ASYMPTOMATIC 54 Y/O FEMALE COMPARISON: 12/30/2024, 11/05/2023, 09/24/2022 TECHNIQUE: Digital mammogram in CC and MLO projections including computer-aided detection (CAD) and tomosynthesis. BREAST COMPOSITION: The breasts are almost entirely fatty. FINDINGS: No suspicious findings. ASSESSMENT: BI-RADS 1 Negative RECOMMENDATION: Annual screening mammogram. A lay language report of this examination will be provided to the patient. Dictated by: Zachary Perry MD @ 03/11/2025 10:45:31 Signed by:?Zachary Perry MD @03/11/2025 10:45:31 AM (Electronic Signature)
--- OUTSIDE RECORDS SUMMARY | 2025-03-11 00:16 | XMS_ITS | Clinical Summary ---
Author Organization [facility] Address [address] [place] [address] Care Team Providers Care Youth Program Director Name Role Phone Unavailable Primary Care Provider [...] Immunization Administration Dates Next Due COVID-19 vaccine (Cor[employer]olv-[employer] Reporter 30mcg/0.3mL) P F, MDV 01/06/2021,12/17/2020 Td (Age [...] on file Legal Sex Female 5:27 AM CLIPMAN Gender Identity Not on file Sexual Orientation [...] Procedure Name Priority Date/Time Associated Diagnosis Comments AIRCRAFT MANAGER THIN PREP PAP DIAGNOSTIC IMAGED Routine 06/28/2022 9:30 AM CDT COLONOSCOPY DIAGNOSTIC Routine 12/23/2018 9:43 AM CDT Diverticulosis of large intestine without hemorrhage XR MAMMO BILAT SCREENING Routine 12/15/2018 9:08 AM CDT Visit for screening mammogram LIPID PANEL W REFLEX MEASURED LDL Routine 12/15/2018 8:34 AM CDT Essential hypertension from Last 3 Months or Most Recently Relevant to Health Maintenance Results * AIRCRAFT MANAGER THIN PREP PAP DIAGNOSTIC IMAGED (06/28/2022 9:30 AM CDT) Case Report Gynecologic Cytology Report Case: [id number] Authorizing Provider: Unknown, Doctor Collected: 06/28/2022 0902 Ordering Location: [facility] Received: 07/11/[address] [place] [address] First Screen: Mir Kim Rescreen: Marbella Lantigua Specimen: AIRCRAFT MANAGER ThinPrep Vial Diagnostic, Cervical/Vaginal 07/27/2022 9:21 AM [facility] [employer] LABORATORY-C ENTRAL LABORATORY INTERPRETATION/ RESULT NEGATIVE FOR INTRAEPITHELIAL LESION OR MALIGNANCY (NIL) (none) 07/27/2022 9:21 AM CLIPMAN [facility] ENTRAL LABORATORY at 0921 CL[facility]MAN SPECIMEN ADEQUACY Satisfactory for evaluation Endocervical component present 07/27/2022 9:21 AM CLIPMAN [facility] ENTRNM LABORATORY HPV REQUEST HPV and PAP 07/27/2022 9:21 AM CLIPMAN [facility]-C ENTRAL LABORATORY Last Pap Result First Pap/Unknown 9:21 AM CLIPMAN [facility]- ENTRAL LABORATORY [place] Bx Done Today No 07/27/2022 9:21 AM CL[facility] ENTRAL LABORATORY Additional Information 07/27/2022 9:21 AM CLIPMAN [facility] ENTRAL LABORATORY Comment: Interpreted at [facility], Central Laboratory - [address] [address] Automated Review Successful 07/27/2022 9:21 AM CLIPMAN [facility] ENTRAL LABORATORY Comment:Specimen processed s uccessfully by automated research biologist device, ThinPrep Imaging System, [employer] ANCILLARY TESTING AIRCRAFT MANAGER HPV Ordered, Please see separate report 07/27/2022 9:21 AM CL[facility] ENTRNM LABORATORY Note The pap test is a screening technique, not a diagnostic procedure. It is used primarily to screen for squamous cancers and precursor lesions. Published studies have shown that it is subject to both false negative and false positive results. The pap test should not be used as the sole means to diagnose or exclude pre-malignant and malignant lesions. 07/27/2022 9:21 AM CL[facility] LABORATORY-C ENTRAL LABORATORY Other (Cervical/Vagina l) 06/28/2022 9:30 AM CDT 07/11/2022 10:17 AM CDT Doctor Unknown PATHOLOGY/CYTOLOGY Final Result [facility]-CENTRAL LABORATORY [address] [place] [address], [place] * COLONOSCOPY DIAGNOSTIC (12/23/2018 9:43 AM [...] 12:20 PM CDT XR MAMMO BILAT SCREENING [[id number]] CLINICAL HISTORY: This is an asymptomatic 48 y.o. patient. INDICATION FOR EXAM: Mammogram Screening. TECHNIQUE: CC & MLO views were obtained. This digital study was evaluated with the assistance of Computer-Aided Detection. COMPARISON FILM: Yes 09/26/16 [facility] 01/11/15 [facility] FINDINGS: Mammographically, the breast tissue is almost entirely fat. There are no dominant masses, suspicious micro calcifications or areas of architectural distortion. Toy Peoples MD MAMMO Final Resu lt * LIPID PANEL W REFLEX MEASURED LDL (12/15/2018 8:34 AM CDT) CHOLESTEROL,TOTAL 163 100 - 199 mg/dL 12/15/2018 2:33 PM CDT [facility] TRAL LABORATORY TRIGLYCERIDES 80 <150 mg/dL 12/15/2018 2:33 PM CDT [facility] TRAL LABORATORY HDL CHOLESTEROL 48 >40 mg/dL 9 2:33 PM CDT [facility] TRAL LABORATORY NON-HDL CHOLESTEROL 115 <145 mg/dl 12/15/2018 2:33 PM CDT [facility] TRAL LABORATORY CHOL/HDL RATIO 3.40 <4.50 12/15/2018 2:33 PM CDT [facility] TRAL LABORATORY LDL CHOLESTEROL 99 <=130 mg/dL 12/15/2018 2:33 PM CDT [facility] TRAL LABORATORY PROVIDER ORDERED STATUS RANDOM 12/15/2018 2:33 PM CDT [facility] TRAL LABORATORY Blood BLOOD SPECIMEN / Unknown Venipuncture / Unknown 12/15/2018 8:34 AM CDT 12/15/2018 8:36 AM CDT us Toy Peoples MD CHEMISTRY Final Resu lt [facility] [address] [place] [address], [place] from Last 3 Months or Most Recently Relevant to Health Maintenance
== END 2025-03-10 15:08 | disposition home or self-care (01) ==
LOC: MAMMO 15:07
PROVIDERS: PCP Nurse Practitioner Family; Visit Provider Family Medicine
DX: Z12.31 Encounter for screening mammogram for malignant neoplasm of breast (principal)
CPT/HCPCS: 77063; 77067